=== PATIENT | male | born 1995 | race Caucasian/White ===

== ENCOUNTER 2017-01-04 11:26 | Emergency (ER) | payer OTHER ==
[2017-01-04 11:26] VITALS: BP 138/65
[~2017-01-04 11:26] MED LIST: SERT25TA PO; ZOLO25TA PO
--- NOTE | 2017-01-04 12:50 | REP ---
Clinical: Trauma. Technique: AP, lateral, bilateral oblique and sunrise views of the right knee . Findings: The osseous structures and joint spaces are intact and normal. There is no evidence for acute fracture or dislocation. No joint effusion is appreciated. Surrounding soft tissues are unremarkable. No subcutaneous emphysema or radiodense foreign body. Impression: Normal examination. No acute fracture or dislocation. . Signed by Iván Robles MD 01/04/2017 12:42 P
== END 2017-01-04 13:27 | disposition home or self-care (01) ==
LOC: M ED 11:26
DX: S80.811A Abrasion, right lower leg, initial encounter (principal); S80.01XA Contusion of right knee, initial encounter; W17.89XA Other fall from one level to another, initial encounter; Y92.59 Other trade areas as the place of occurrence of the external cause; Y93.89 Activity, other specified; Y99.0 Civilian activity done for income or pay

== ENCOUNTER → 2017-01-20 | Outpatient (CLI) | payer OTHER ==
--- NOTE | 2017-01-20 12:26 | REP ---
MRI RIGHT KNEE: TECHNIQUE: Axial proton density fat saturation, sagittal proton density T2 STIR, water excitation, coronal proton density, proton density fat saturation. Menisci appear intact with no evidence of a meniscal tear. The cruciate and collateral ligaments are intact. The extensor mechanism is intact. No cartilaginous defects are seen. There is no bone marrow edema or occult fracture. There is a normal amount of joint fluid. No popliteal cyst is seen. IMPRESSION: Essentially negative MRI of the right knee. Signed by Farrukh Lares MD 01/22/2017 08:55 A
== END ==
LOC: M RAD 09:19
PROVIDERS: ATTEND Orthopaedic Surgery
DX: S80.01XA Contusion of right knee, initial encounter (principal); X58.XXXA Exposure to other specified factors, initial encounter; Y92.89 Other specified places as the place of occurrence of the external cause; Y93.89 Activity, other specified; Y99.8 Other external cause status

== ENCOUNTER 2018-01-20 19:04 | Emergency (ER) | payer OTHER ==
[2018-01-20] MEDS: IBUPROFEN 600 MG TAB PO (20:05)
== END 2018-01-20 20:26 | disposition home or self-care (01) ==
LOC: M ED 19:04
DX: S63.502A Unspecified sprain of left wrist, initial encounter (principal); W22.8XXA Striking against or struck by other objects, initial encounter; Y92.9 Unspecified place or not applicable
CPT/HCPCS: 99283

== ENCOUNTER → 2020-02-07 | Outpatient (CLI) | payer OTHER, SELFPAY ==
[~2020-02-07] MED LIST changes: +NAPR-837 PO; -SERT25TA PO; +SERT25TA85 PO
== END ==
LOC: M LABSMTC 10:09
PROVIDERS: ATTEND Pediatrics
DX: Z20.828 Contact with and (suspected) exposure to other viral communicable diseases (principal)

== ENCOUNTER 2021-07-20 20:20 | Emergency (ER) | payer BC, SELFPAY ==
[~2021-07-20] VITALS: Ht 185.4 cm; Wt 124.9 kg
[2021-07-20 21:11] LABS: BASO # 0.1 10^3/uL (0.0-0.2); BASO % 0.6 % (0.0-1.0); EOS % 0.3 % (0.0-3.0); HEMATOCRIT 44.4 % (42.0-52.0); HEMOGLOBIN 15.6 g/dl (13.5-17.5); LYMPH % 20.9 % (24.0-44.0); MEAN CORPUSCULAR HGB CONC 35.1 g/dl (32.0-36.5); MEAN CORPUSCULAR VOLUME 85.4 fl (80.0-96.0); MONO # 0.8 10^3/uL (0.0-0.8); MONO % 8.8 % (2.0-8.0); NEUTROPHILS # 6.5 10^3/uL (1.5-8.5); NEUTROPHILS % 68.9 % (36.0-66.0); PLATELET COUNT, AUTOMATED 247 10^3/uL (150-450); WHITE BLOOD COUNT 9.4 10^3/uL (4.0-10.0)
[2021-07-20 21:28] LABS: AMPHETAMINES LEVEL URINE NEGATIVE (NEGATIVE); BARBITURATES URINE NEGATIVE (NEGATIVE); BENZODIAZEPINES URINE NEGATIVE (NEGATIVE); CANNABINOIDS URINE POSITIVE (NEGATIVE); COCAINE METABOLITE URINE NEGATIVE (NEGATIVE); METHADONE URINE NEGATIVE (NEGATIVE); OPIATES URINE NEGATIVE (NEGATIVE); PHENCYCLIDINE URINE NEGATIVE (NEGATIVE)
[2021-07-20 21:33] LABS: ACETAMINOPHEN LEVEL < 2.0 UG/ML (10.0-30.0); ALBUMIN 4.5 GM/DL (3.2-5.2); ALT/SGPT 54 U/L (12-78); BILIRUBIN,DIRECT 0.3 MG/DL (0.0-0.2); BILIRUBIN,TOTAL 2.1 MG/DL (0.2-1.0); BLOOD UREA NITROGEN 7 MG/DL (7-18); CALCIUM LEVEL 9.8 MG/DL (8.5-10.1); CARBON DIOXIDE LEVEL 23 MEQ/L (21-32); CHLORIDE LEVEL 107 MEQ/L (98-107); CREATININE FOR GFR 0.86 MG/DL (0.70-1.30); ETHYL ALCOHOL (ETHANOL) < 0.003 % (0.000-0.010); GLOMERULAR FILTRATION RATE > 60.0 (>60); GLUCOSE, FASTING 94 MG/DL (70-100); POTASSIUM SERUM 3.8 MEQ/L (3.5-5.1); SALICYLATE LEVEL < 1.7 MG/DL (5.0-30.0); SODIUM LEVEL 139 MEQ/L (136-145); TOTAL PROTEIN 7.5 GM/DL (6.4-8.2)
[2021-07-20 21:34] LABS: RSV AMPLIFICATION NEGATIVE (NEGATIVE)
[2021-07-21] MEDS ORDERED: MULTCHW12 PO (04:33)
[2021-07-21] MEDS ORDERED: HOME MED LIST COMPLETE! XX SCH (04:35)
[2021-07-22 10:36] VITALS: BP 141/89
== END 2021-07-22 10:40 ==
LOC: EDBD 20:20 → M ED 20:20
DX: R45.851 Suicidal ideations (principal)

== ENCOUNTER 2022-03-06 19:19 | Emergency (ER) | payer BC ==
[~2022-03-06] VITALS: Ht 185.4 cm; Wt 113.2 kg
[2022-03-06 19:19] VITALS: BP 122/62
[~2022-03-06 19:19] MED LIST changes: -APAP325T4 PO; -DICY10CA13 PO; -ONDA4TAB6 PO
[2022-03-06] MEDS ORDERED: ONDA4TAB6 PO (19:26)
[2022-03-06] MEDS ORDERED: APAP325T4 PO (19:26)
[2022-03-06 20:27] LABS: BASO % 0.3 % (0.0-1.0); EOS % 0.1 % (0.0-3.0); HEMOGLOBIN 16.2 g/dl (13.5-17.5); LYMPH # 0.5 10^3/uL (1.5-5.0); LYMPH % 5.9 % (24.0-44.0); MEAN CORPUSCULAR HGB CONC 33.8 g/dl (32.0-36.5); MONO # 0.5 10^3/uL (0.0-0.8); MONO % 5.8 % (2.0-8.0); NEUTROPHILS # 7.5 10^3/uL (1.5-8.5); NEUTROPHILS % 87.6 % (36.0-66.0); PLATELET COUNT, AUTOMATED 212 10^3/uL (150-450); RED BLOOD COUNT 5.58 10^6/uL (4.30-6.10); WHITE BLOOD COUNT 8.6 10^3/uL (4.0-10.0)
[2022-03-06 20:54] LABS: LIPASE 24 U/L (12-53)
[2022-03-06 20:56] LABS: AMYLASE 43 U/L (30-118); BLOOD UREA NITROGEN 13 MG/DL (9-23); CALCIUM LEVEL 8.8 MG/DL (8.5-10.1); CARBON DIOXIDE LEVEL 28 MMOL/L (20-31); CHLORIDE LEVEL 102 MMOL/L (98-107); CREATININE FOR GFR 0.95 MG/DL (0.70-1.30); GLOMERULAR FILTRATION RATE > 60.0 (>60); GLUCOSE, FASTING 95 MG/DL (60-100); POTASSIUM SERUM 4.3 MMOL/L (3.5-5.1); SODIUM LEVEL 138 MMOL/L (136-145)
[2022-03-06] MEDS ORDERED: ONDANSETRON 4MG 2ML VIAL IV ONE (22:15)
[2022-03-06] MEDS ORDERED: ISOVUE-370 76% 100ML VIAL As Ordered ONE ×2 (22:54→23:31)
[2022-03-06] MEDS ORDERED: NS 1,000 ML IV ONE (22:55)
[2022-03-06] MEDS ORDERED: MORPHINE 4 MG/ML 1ML VIAL IV ONE (22:55)
[2022-03-07] MEDS ORDERED: DICY10CA13 PO (00:24)
[2022-03-07] MEDS ORDERED: ONDA4TAB6 PO (00:24)
[2022-03-07] MEDS ORDERED: ONDANSETRON 4MG ORAL DISINTEGRATING TAB PO ONE (00:25)
== END 2022-03-07 00:40 | disposition home or self-care (01) ==
LOC: M ED 19:19
DX: R10.9 Unspecified abdominal pain (principal); R11.2 Nausea with vomiting, unspecified; R19.7 Diarrhea, unspecified; Z87.19 Personal history of other diseases of the digestive system
CPT/HCPCS: 74177; 80048; 82150; 83690; 85025; 96374; 96375; 99283; J2405

== ENCOUNTER → 2022-03-06 | Outpatient (REF) | payer BC ==
[~2022-03-06] MED LIST changes: +APAP325T4 PO; +DICY10CA13 PO; +MULTCHW12 PO; +ONDA4TAB6 PO
== END ==
LOC: M LAB REF 09:51
PROVIDERS: ATTEND Physician Assistant
DX: Z53.9 Procedure and treatment not carried out, unspecified reason (principal)

== ENCOUNTER 2023-08-03 12:02 | Emergency (ER) | payer BC, OTHER ==
[~2023-08-03] VITALS: Ht 188 cm; Wt 113.4 kg
[2023-08-03 12:02] VITALS: BP 143/78; TEMP 99.7; O2SAT 97
[~2023-08-03 12:02] MED LIST changes: +APAP325T4 PO; +DICY-61 PO; +ONDA-282 PO
[2023-08-03 12:52] LABS: BASO % 0.6 % (0.0-1.0); EOS % 0.5 % (0.0-3.0); HEMATOCRIT 45.4 % (42.0-52.0); HEMOGLOBIN 15.7 g/dl (13.5-17.5); LYMPH # 1.5 10^3/uL (1.5-5.0); LYMPH % 23.6 % (24.0-44.0); MEAN CORPUSCULAR HEMOGLOBIN 29.7 pg (27.0-33.0); MEAN CORPUSCULAR HGB CONC 34.6 g/dl (32.0-36.5); MONO # 0.4 10^3/uL (0.0-0.8); MONO % 6.7 % (2.0-8.0); NEUTROPHILS # 4.5 10^3/uL (1.5-8.5); NEUTROPHILS % 68.4 % (36.0-66.0); PLATELET COUNT, AUTOMATED 228 10^3/uL (150-450); RED BLOOD COUNT 5.28 10^6/uL (4.30-6.10); WHITE BLOOD COUNT 6.5 10^3/uL (4.0-10.0)
[2023-08-03 13:18] LABS: ALBUMIN 4.3 G/DL (3.2-5.2); BILIRUBIN,DIRECT 0.5 MG/DL (<0.4); BILIRUBIN,TOTAL 1.5 MG/DL (0.3-1.2); TOTAL PROTEIN 6.6 G/DL (5.7-8.2)
[2023-08-03] MEDS: OMEPRAZOLE 20MG CAP PO ONE (13:56)
[2023-08-03] MEDS ORDERED: OMEP20TA2 PO (13:57)
== END 2023-08-03 14:09 | disposition home or self-care (01) ==
LOC: M ED 12:02
DX: R05.9 Cough, unspecified (principal); R11.10 Vomiting, unspecified; K21.9 Gastro-esophageal reflux disease without esophagitis; F17.200 Nicotine dependence, unspecified, uncomplicated; Z11.52 Encounter for screening for COVID-19

== ENCOUNTER 2023-11-21 09:42 | Emergency (ER) | payer OTHER ==
[~2023-11-21] VITALS: Ht 188 cm; Wt 106.8 kg
[~2023-11-21 09:42] MED LIST changes: +OMEP20TA2 PO
[2023-11-21] MEDS ORDERED: BENZ200C70 PO (12:52)
[2023-11-21 12:58] VITALS: BP 156/80; TEMP 98.3; O2SAT 99
== END 2023-11-21 12:59 | disposition home or self-care (01) ==
LOC: M ED 09:42
DX: R05.9 Cough, unspecified (principal); B34.9 Viral infection, unspecified; Z79.2 Long term (current) use of antibiotics